=== PATIENT | male | born 1970 | race Caucasian/White ===

== ENCOUNTER 2019-12-20 07:59 | Inpatient (IN) | payer SELFPAY ==
[2019-12-20 08:29] LABS: #Eosinphils 0.1 thou/uL (0.0-0.7); #Lymphocytes 1.1 thou/uL (1.20-3.40); #Monocytes 0.5 thou/uL (0.11-0.59); #Neutrophils 10.7 thou/uL (1.40-6.50); %Basophils 0.3 % (0.0-1.0); %Eosinophils 0.4 % (0.0-10.0); %Lymphocytes 8.6 % (21.0-51.0); %Monocytes 4.2 % (0.0-10.0); %Neutrophils 86.4 % (42.0-75.0); Mean Corpuscular HGB CONC 32.4 g/dL (32.0-36.0); Mean Corpuscular Volume 95.8 fL (78.0-98.0); Mean Platelet Volume 9.1 fL (7.4-10.4); Platelet Count 242 thou/uL (130-400); RBC Distribution Width 12.3 % (11.5-14.5); Red Blood Cell (RBC) Count 4.52 mill/uL (4.70-6.10); White Blood Cell (WBC) Count 12.3 thou/uL (4.8-10.8)
--- NOTE | 2019-12-20 08:39 | RAD ---
XR Chest 1 View Portable HISTORY: Dyspnea COMPARISON: None FINDINGS: The heart size is prominent. The lungs are well expanded without focal areas of consolidati on, brittany pulmonary edema, pneumothorax or pleural effusions. IMPRESSION: No radiographic evidence of acute cardiopulmonary process.
[2019-12-20 08:53] LABS: ALT (SGPT) 82 U/L (8-55); AST (SGOT) 41 U/L (5-34); Albumin 3.8 g/dL (3.5-5.0); Alkaline Phosphatase 78 U/L (40-110); Anion Gap 16 mmol/L (10-20); BUN (Urea Nitrogen) 16 mg/dL (8.9-20.6); Bilirubin, Total 0.6 mg/dL (0.2-1.2); Calc. Creatinine Clearance 0 mL/min (70-130); Carbon Dioxide 20 mmol/L (22-29); Chloride 108 mmol/L (98-107); Estimated GFR-MDRD Greater than 90; Globulin 2.7 g/dL (2.4-3.5); Glucose 134 mg/dL (70-105); Potassium 4.5 mmol/L (3.5-5.1); Protein, Total 6.5 g/dL (6.0-8.3); Sodium 139 mmol/L (136-145)
[2019-12-20 09:13] LABS: CKMB 2.9 ng/mL (0-6.6)
[2019-12-20] MEDS ORDERED: Furosemide 20 MG/2 ML VIAL SLOW IVP SCH (11:15)
--- NOTE | 2019-12-20 11:26 | PDOC.HHP ---
Hospitalist HPI - History of Present Illness Shortness of breath History of Present Illness: Mr. Palacios is a 49-year-old male with a past medical history of intermittent atrial fibrillation, asthma, alcohol use, tobacco use who presents for 8 days of worsening shortness of breath. Patient reports that about 8 days ago he noticed he became short of breath when walking short distances around his home. His shortness of breath worsened and he presented to urgent care who prescribed him steroids and antibiotics for question pneumonia. Patient denies any cough. Patient shortness of breath continued to worsen despite steroids and antibiotics. Patient reports that he is unable to lay flat without feeling shortness of breath. For the past week has slept upright in a recliner. Patient feels comfortable when sitting upright and at rest, but experiences shortness of breath with of exertion. Patient has also noted mild swelling to his bilateral lower extremities. Patient denies chest pain, but does report that his abdomen feels tight. Denies nausea/vomiting/diarrhea. Denies melena, hematochezia. No history of acid-reflux. Patient reports that while he does have a primary care provider listed, he has not had a physical in decades. He only sees his primary care provider for urgent care considerations and generally tries to avoid doctors. He reports that for his atrial fibrillation he was on medication over 10 years ago, but this was discontinued for an unknown reason. He does not believe he ever saw a wireless watcher for his atrial fibrillation. In the emergency room initial vital signs 167/114, 128, 22, 97.8, 99% on 2 L nasal cannula. EKG shows A. fib with rapid ventricular rate to the 120s. Initial troponin 0 0.108. BNP 1726, chest x-ray with no acute findings. H/H 14.0/43.3, WBC 12.3. BUN/CR 16/0.88. AST/ALT 41/82. Patient received 20 mg of IV diltiazem and 1 L of normal saline. Hospitalist ROS - Review of Systems Constitutional: denies: fever, chills, sweats, weakness, malaise, other Eyes: denies: pain, vision change, conjunctivae inflammation, eyelid inflammation, redness, other ENT: denies: ear pain, ear discharge, nose pain, nose discharge, nose congestion, mouth pain, mouth swelling, throat pain, throat swelling, other Respiratory: reports: shortness of breath, SOB with excertion. denies: cough, dry, hemoptysis, pleuritic pain, sputum, wheezing, other Cardiovascular: reports: orthopnea, edema. denies: chest pain, palpitations, paroxysmal noc. dyspnea, light headedness, other Gastrointestinal: reports: abdominal pain. denies: nausea, vomiting, diarrhea, constipation, melena, hematochezia, other Genitourinary: denies: dysuria, frequency, incontinence, hematuria, retention, other Musculoskeletal: denies: neck pain, shoulder pain, arm pain, back pain, hand pain, leg pain, foot pain, other Skin: denies: rash, lesions, jaspreet, bruising, other Neurological: denies: weakness, numbness, incoordination, change in speech, confusion, seizures, other - Medication Medications: New medications include Tramadol Meloxicam Symbicort Albuterol Allergy to penicillin Hospitalist History - Past Medical History Other Medical History: Past medical history of Intermittent atrial fibrillation Asthma EtOH use Tobacco use Patient has not been fully evaluated by primary care doctor in over 10 years. Patient reports he generally tries to avoid doctors. - Past Surgical History Other Surgical History: No past surgical history - Family History Other Family History: Denies family history of cardiac disease, cancer, diabetes - Social History Smoking Status: Never smoker Tobacco Type: chewing tobacco Alcohol: reports: Heavy (4-5 drinks per night) Drugs: reports: none Living Situation: With Family Activity level: independent ambulation - Exam General Appearance: NAD, awake alert Eye: PERRL, anicteric sclera ENT: normocephalic atraumatic, no oropharyngeal lesions, moist mucosa Neck: supple, symmetric, JVD. negative: no JVD, no thyromegaly, no lymphadenopathy, no carotid bruit Heart: no murmur, no gallops, no rubs, normal peripheral pulses, irregular Respiratory: no wheezes, normal chest expansion, no tachypnea, rales (At bilateral bases) Gastrointestinal: soft, non-tender, normal bowel sounds, no palpable masses, distended Extremities: no cyanosis, no clubbing, 2+ LE edema Skin: normal turgor, no lesions, no rashes Neurological: cranial nerve grossly intact, normal sensation to touch, no weakness, no focal deficits, no new deficit Musculoskeletal: normal tone, normal strength, no muscle wasting Psychiatric: normal affect, normal behavior, A&O x 3 Hospitalist Results - Labs Result Diagrams: 12/20/19 08:13 12/20/19 08:13 Lab results: WBC 12.3 thou/uL (4.8-10.8) H 12/20/19 08:13 Hgb 14.0 g/dL (14.0-18.0) 12/20/19 08:13 Hct 43.3 % (42.0-52.0) 12/20/19 08:13 MCV 95.8 fL (78.0-98.0) 12/20/19 08:13 Plt Count 242 thou/uL (130-400) 12/20/19 08:13 Neutrophils % 86.4 % (42.0-75.0) H 12/20/19 08:13 Sodium 139 mmol/L (136-145) 12/20/19 08:13 Potassium 4.5 mmol/L (3.5-5.1) 12/20/19 08:13 Chloride 108 mmol/L (98-107) H 12/20/19 08:13 Carbon Dioxide 20 mmol/L (22-29) L 12/20/19 08:13 BUN 16 mg/dL (8.9-20.6) 12/20/19 08:13 Creatinine 0.88 mg/dL (0.7-1.3) 12/20/19 08:13 Glucose 134 mg/dL (70-105) H 12/20/19 08:13 Calcium 9.0 mg/dL (7.8-10.44) 12/20/19 08:13 Total Bilirubin 0.6 mg/dL (0.2-1.2) 12/20/19 08:13 AST 41 U/L (5-34) H 12/20/19 08:13 ALT 82 U/L (8-55) H 12/20/19 08:13 Alkaline Phosphatase 78 U/L (40-110) 12/20/19 08:13 CK-MB (CK-2) 2.9 ng/mL (0-6.6) 12/20/19 08:13 Troponin I 0.108 ng/mL (< 0.028) H 12/20/19 08:13 B-Natriuretic Peptide 1726.3 pg/mL (0-100) H 12/20/19 08:13 Serum Total Protein 6.5 g/dL (6.0-8.3) 12/20/19 08:13 Albumin 3.8 g/dL (3.5-5.0) 12/20/19 08:13 Hospitalist H&P A/P - Plan Plan: 49-year-old male with history of A. fib, asthma, EtOH use, tobacco use with noncompliance and poor follow-up who presents in what appears to be an acute heart failure exacerbation and A. fib with rapid ventricular rate. Shortness of breath Patient treated at urgent care for pneumonia with steroids and antibiotics, but did not improve patient's shortness of breath. Patient with orthopnea, lower extremity swelling. No cough or wheezing. Patient appears fluid overloaded on exam. BNP elevated to 1726. Chest x-ray with vascular congestion. WBC 12.3. 96% on 2 L nasal cannula. Patient does not have history of heart failure, and is Lasix felix so we will start with 20 mg IV. Will also test for Covid and respiratory viral panel. Patient denies any known Covid contacts. Plan Suspect CHF exacerbation Lasix 20 mg IV Echocardiogram Supplemental O2, continuous pulse ox monitoring Covid, viral panel pending Atrial fibrillation with rapid ventricular rate Patient reports history of intermittent A. fib, but has never seen a wireless watcher before. Patient reports that over 10 years ago he was on some medication for A. fib but has long stopped taking this for unknown reasons. Patient reports he cannot tell when he is in A. fib. RFR2HO0-SALj score 1 due to presumed CHF, but also suspect suspect that patient has untreated hypertension which would make his chads vas score 2. Will consult cardiology for further recommendations. In the emergency room EKG shows A. fib with rapid ventricular rate to the 120s. Hemodynamically stable. Patient received 20 mg of IV diltiazem and is now with a ventricular rate of 100-110. Will start patient on metoprolol 25 mg twice daily. Cardiology recommendations appreciated. Plan Telemetry monitoring Start metoprolol 25 mg p.o. twice daily Echocardiogram TSH, magnesium Cardiology consult Epigastric pain Patient describes band-like "tightness" across his upper abdomen. Denies chest pain. Denies any relation of the pain to meals. Does use meloxicam chronically for knee pain. Denies melena, hematochezia. No N/V/D. Troponin mildly elevated to 0.108, however suspect this is mostly 2/2 to atrial fibrillation. Also susp ect fluid in patient's abdomen. LFTs elevated. Will obtain RUQUS and start ASA 325 mg. Plan -Trend troponins -RUQUS -ASA 325 mg -Start protonix Elevated troponin Patient with elevated troponin to 0.108. Patient denies chest pain. EKG shows A. fib, but no significant ST changes. Suspect elevated troponin likely secondary to A. fib but will trend and continue to monitor. Plan Trend troponin Telemetry monitoring Asthma Patient reports history of asthma on Symbicort and albuterol inhalers. Patient reports he rarely uses his inhalers. When patient became short of breath question asthma versus pneumonia. Went to his PCP for an urgent care visit and they prescribed him prednisone, antibiotics. No improvement in respiratory status since starting Lasix. Low suspicion for asthma exacerbation. Patient without wheezing on exam. Question asthma versus COPD. Plan Albuterol nebs as needed Transaminitis LFTs elevated AST/ALT /. Patient reports significant alcohol use approximately 4-6 beers per night. Patient has not had physical in years. And on exam he reports abdominal tightness. Abdomen appears mildly distended and question fluid overload. Will pursue right upper quadrant ultrasound. Plan Right upper quadrant ultrasound Hepatitis panel Outpatient follow-up Leukocytosis Patient with mild leukocytosis to 12.3, no left shift. Patient treated for suspected pneumonia as an outpatient with no improvement in his shortness of breath. Favor CHF exacerbation versus pneumonia at this time. As patient has no cough, and is afebrile. Suspect leukocytosis is likely reactive. Will hold off on antibiotics for now, with low threshold to start. Plan Trend WBC, fever curve Low threshold to start antibiotics Covid, RVP pending EtOH use History of alcohol use 4-5 beers nightly. AST/ALT elevated 41/82. Patient denies history of seizures or withdrawal symptoms. Last drink was day prior to admission. Will place patient on ASE protocol. Plan ASE protocol Vitamin B12, thiamine Tobacco use Patient uses dip on a daily basis. Patient counseled about nicotine use. DVT prophylaxis: Lovenox Full code, patient has named his father as his medical decision-maker Case discussed with attending physician .
[2019-12-20 11:55] LABS: Lactic Acid 1.7 mmol/L (0.5-2.2)
[2019-12-20 11:57] LABS: Troponin I 0.091 ng/mL (< 0.028)
[2019-12-20 13:09] LABS: Bilirubin Negative (Negative); Blood, Urine Negative (Negative); Clarity Clear (Clear); Glucose, Urine (Dipstick) Normal (Negative); Ketone, Urine Negative (Negative); Leukocyte Negative Leu/uL (Negative); Nitrite Negative (Negative); Protein, Urine (Dipstick) Negative (Neg-Trace); Specific Gravity, Urine 1.017 (1.002-1.036); Urobilinogen Normal mg/dL (Less than 2); pH, Urine 5.5 (5.0-9.0)
[2019-12-20 13:32] LABS: Cardiac Risk 2.8 (Less than 4.5)
[2019-12-20 13:56] LABS: HBCM Index 0.08 S/CO (0-0.79); HBSAg Index 0.11 S/CO (0-0.99); Hep A IgM AB Non-Reactive (NonReactive); Hep B Surf Ag Non-Reactive S/CO (NonReactive); Hep C IgG Ab Non-Reactive (NonReactive); Hep C Index 0.06 S/CO (0-0.79); Hepatitis B Core IgM Abs Non-Reactive (NonReactive); Thyroid Stimulating Hormone 1.6155 uIU/mL (0.35-4.94)
[2019-12-20 14:19] LABS: SARS-CoV-2 NAA Rapid Test Not Detected (NotDetected)
[2019-12-20 14:35] LABS: Hemoglobin A1c 5.1 % (4.0-6.0)
[2019-12-20 14:50] LABS: Troponin I 0.117 ng/mL (< 0.028)
[2019-12-20] MEDS ORDERED: Magnesium 2 GM/50 ML 2 GM in Premix Bag 1 BAG IVPB SCH (16:00)
[2019-12-20] MEDS ORDERED: Aspirin 325 MG TAB PO SCH (16:00)
[2019-12-20 18:45] VITALS: BMI 43.0
[2019-12-20] MEDS: Metoprolol Tartrate 25 MG TAB PO SCH (21:57)
[2019-12-21 04:22] LABS: #Basophils 0.1 thou/uL (0.0-0.2); #Eosinphils 0.1 thou/uL (0.0-0.7); #Lymphocytes 2.2 thou/uL (1.20-3.40); #Monocytes 0.8 thou/uL (0.11-0.59); #Neutrophils 7.7 thou/uL (1.40-6.50); %Basophils 0.7 % (0.0-1.0); %Eosinophils 0.9 % (0.0-10.0); %Lymphocytes 20.3 % (21.0-51.0); Hemoglobin 13.4 g/dL (14.0-18.0); Mean Corpuscular HGB CONC 32.8 g/dL (32.0-36.0); Mean Corpuscular Hemoglobin 31.7 pg (27.0-31.0); Mean Corpuscular Volume 96.6 fL (78.0-98.0); Mean Platelet Volume 9.2 fL (7.4-10.4); Platelet Count 217 thou/uL (130-400); RBC Distribution Width 12.2 % (11.5-14.5); Red Blood Cell (RBC) Count 4.22 mill/uL (4.70-6.10); White Blood Cell (WBC) Count 10.9 thou/uL (4.8-10.8)
[2019-12-21 04:44] LABS: Anion Gap 12 mmol/L (10-20); BUN (Urea Nitrogen) 17 mg/dL (8.9-20.6); Calc. Creatinine Clearance 200 mL/min (70-130); Calcium 8.7 mg/dL (7.8-10.44); Carbon Dioxide 26 mmol/L (22-29); Chloride 108 mmol/L (98-107); Estimated GFR-MDRD Greater than 90; Glucose 103 mg/dL (70-105); Sodium 142 mmol/L (136-145)
--- NOTE | 2019-12-21 07:43 | ULT ---
Sonogram right upper quadrant HISTORY: Abnormal liver function tests. Right upper quadrant pain. Findings gallbladder has a normal appearance without stone evident. Common duct is 0.3 cm. Liver is heterogeneous and diffusely echogenic without focal mass or intrahepatic biliary dilatation. No free fluid. IMPRESSION : No evidence of gallstones or biliary obstruction. Hepato-steatosis.
[2019-12-21] MEDS ORDERED: Enoxaparin Sodium 40 MG/0.4 ML SYRINGE SC SCH (09:00)
[2019-12-21] MEDS: Metoprolol Tartrate 25 MG TAB PO SCH (09:32)
--- NOTE | 2019-12-21 14:29 | PDOC.HOSPP ---
- Subjective Encounter Date: 12/21/19 Subjective: The patient is feeling better. Denies chest pain or shortness of breath. - Objective Vital Signs & Weight: Vital Signs (12 hours) Temp Pulse Resp BP BP Pulse Ox 12/21/19 12:05 98.9 F 105 H 17 161/103 H 97 12/21/19 07:55 98.0 F 94 16 152/113 H 98 12/21/19 05:39 20 93 L 12/21/19 04:00 98.6 F 97 22 H 149/96 H 99 Weight Weight 299 lb 12.8 oz Result Diagrams: 12/21/19 03:52 12/21/19 03:52 Hospitalist ROS - Medication Medications: Active Medications Generic Name Dose Route Start Last Admin Trade Name Freq PRN Reason Stop Dose Admin Albuterol/Ipratropium 3 ml 12/20/19 12:00 12/21/19 05:39 Ipratropium/Albuterol Sulfate 3 Ml Neb NEB 3 ml PRN PRN Administration Wheezing Enoxaparin Sodium 40 mg 12/21/19 09:00 12/21/19 09:32 Enoxaparin Sodium 40 Mg/0.4 Ml Syringe SC 40 mg 0900 NANCI Administration Metoprolol Tartrate 25 mg 12/20/19 21:00 12/21/19 09:32 Metoprolol Tartrate 25 Mg Tab PO 25 mg BID NANCI Administration Pantoprazole Sodium 40 mg 12/21/19 09:00 12/21/19 09:33 Pantoprazole 40 Mg Tab PO 40 mg DAILY NANCI Administration - Exam General Appearance: awake alert ENT: normocephalic atraumatic Neck: supple, no JVD Heart: irregular Heart - other findings: Rate controlled Respiratory: normal chest expansion, no tachypnea Extremities: no cyanosis, no clubbing Neurological: cranial nerve grossly intact, no focal deficits Hosp A/P (1) Atrial fibrillation with RVR Code(s): I48.91 - UNSPECIFIED ATRIAL FIBRILLATION Status: Acute (2) CHF exacerbation Code(s): I50.9 - HEART FAILURE, UNSPECIFIED Status: Acute (3) Elevated troponin Code(s): R77.8 - OTHER SPECIFIED ABNORMALITIES OF PLASMA PROTEINS Status: Acute (4) Asthma Code(s): J45.909 - UNSPECIFIED ASTHMA, UNCOMPLICATED Status: Acute - Plan The patient saturating well on room air. Mild dyspnea on exertion is present. Continue diuresis. Atrial fibrillation with rate control on metoprolol. Echocardiogram is pending.
[2019-12-21] MEDS ORDERED: Furosemide 40 MG/4 ML VIAL SLOW IVP SCH (14:45)
--- NOTE | 2019-12-21 15:50 | CON ---
DATE OF CONSULTATION: 12/21/2019 REASON FOR CONSULTATION: Congestive heart failure. HISTORY OF PRESENT ILLNESS: Mr. Palacios is a 49-year-old gentleman with previous history of paroxysmal atrial fibrillation, who recently presented with increased shortness of breath, and lower extremity edema. He states that several weeks ago he was diagnosed with URI and placed on steroid therapy in addition to antibiotics. He did not improve. His shortness of breath and tightness in his chest continued. He also had tightness in his stomach. He states he was not able to lie flat due to shortness of breath. He had PND and orthopnea. He then proceeded to the emergency room with the above. He was found to be in atrial fibrillation with RVR. He is currently rate controlled. He was diagnosed with paroxysmal atrial fibrillation 10-12 years ago. His CHADS score initially was 0. PAST MEDICAL HISTORY: Paroxysmal atrial fibrillation, asthma, alcohol abuse. PAST SURGICAL HISTORY: None. FAMILY HISTORY: None. HOME MEDICATIONS: As above including 1. Tramadol for osteoarthritis. 2. Symbicort. 3. Albuterol. ALLERGIES: PENICILLIN. REVIEW OF SYSTEMS: A 10-point review of systems is reviewed and was negative. PHYSICAL EXAMINATION: GENERAL: Patient is a pleasant male who is in no acute distress. The patient appears their stated age. VITAL SIGNS: Blood pressure 161/103, pulse 105, temperature 98.3. NEUROLOGIC: The patient is alert and oriented x3 with no focal neurologic deficits. HEENT: Sclerae without icterus. Mouth has moist mucous membranes with normal pallor. NECK: No JVD. Carotid upstroke brisk. No bruits bilaterally. LUNGS: Crackles noted bilaterally. BACK: No scoliosis or kyphosis. CARDIAC: Irregularly irregular. ABDOMEN: Soft, nontender, nondistended. No peritoneal signs present. No hepatosplenomegaly. No abnormal striae. EXTREMITIES: 2+ femoral and 2+ dorsalis pedis pulses. No cyanosis, clubbing, or edema. SKIN: No gross abnormalities. PERTINENT LABORATORY DATA: Hemoglobin 13.4, hematocrit 40.7, platelet count 217. Echo Doppler shows LVEF 15-20%. LV appears slightly dilated. IMPRESSION: 1. New onset congestive heart failure of unknown etiology. 2. Paroxysmal atrial fibrillation. 3. Alcohol abuse. RECOMMENDATIONS: 1. Mr. Palacios's recent echo did suggest a significant cardiomyopathy. This may be tachy-joe syndrome secondary to alcohol abuse versus underlying coronary artery disease. 2. At this point I would recommend aggressive diuresis. The patient is not able to lie flat. Once he is able to lie flat we then recommend coronary angiography plus PCI. I discussed the procedure in full detail Mr. Palacios. Risks include but not limited to the following: Heart catheterization, PCI consent. All questions answered given the above patient agreed to proceed above procedure. I will switch his Lasix from p.o. to IV. May also consider metolazone. We will also switch his metoprolol to carvedilol. We will also add Entresto low-dose. Job ID: [id number]
[2019-12-21] MEDS: Carvedilol 6.25 MG TAB PO SCH (17:29)
[2019-12-21] MEDS ORDERED: Enoxaparin Sodium 120 MG/0.8 ML SYRINGE SC SCH (21:00)
[2019-12-22 04:40] LABS: #Basophils 0.1 thou/uL (0.0-0.2); #Eosinphils 0.2 thou/uL (0.0-0.7); #Lymphocytes 1.9 thou/uL (1.20-3.40); #Monocytes 0.7 thou/uL (0.11-0.59); #Neutrophils 5.7 thou/uL (1.40-6.50); %Basophils 0.9 % (0.0-1.0); %Eosinophils 1.8 % (0.0-10.0); %Monocytes 8.4 % (0.0-10.0); %Neutrophils 66.9 % (42.0-75.0); Hemoglobin 14.8 g/dL (14.0-18.0); Mean Corpuscular HGB CONC 33.3 g/dL (32.0-36.0); Mean Corpuscular Hemoglobin 31.9 pg (27.0-31.0); Mean Corpuscular Volume 95.7 fL (78.0-98.0); Mean Platelet Volume 9.3 fL (7.4-10.4); Platelet Count 194 thou/uL (130-400); RBC Distribution Width 12.2 % (11.5-14.5); Red Blood Cell (RBC) Count 4.64 mill/uL (4.70-6.10); White Blood Cell (WBC) Count 8.5 thou/uL (4.8-10.8)
[2019-12-22 05:03] LABS: Anion Gap 15 mmol/L (10-20); BUN (Urea Nitrogen) 17 mg/dL (8.9-20.6); Calc. Creatinine Clearance 184 mL/min (70-130); Calcium 8.9 mg/dL (7.8-10.44); Carbon Dioxide 25 mmol/L (22-29); Chloride 105 mmol/L (98-107); Estimated GFR-MDRD Greater than 90; Glucose 94 mg/dL (70-105); Potassium 3.7 mmol/L (3.5-5.1); Sodium 141 mmol/L (136-145)
[2019-12-22] MEDS: Furosemide 40 MG/4 ML VIAL SLOW IVP SCH ×2 (06:11→14:56)
[2019-12-22] MEDS ORDERED: Carvedilol 6.25 MG TAB PO SCH (08:52)
[2019-12-22] MEDS ORDERED: Furosemide 40 MG TAB PO SCH (09:00)
[2019-12-22] MEDS ORDERED: Communication Order-Pharmacy FS SCH (09:15)
[2019-12-22] MEDS: Carvedilol 6.25 MG TAB PO SCH ×4 (09:21→21:27)
[2019-12-22] MEDS: Sodium Chloride 0.9% 1,000 ML IV SCH (10:13)
[2019-12-22] MEDS ORDERED: Iopamidol 370 76% 100 ML VIAL ONE (12:27)
[2019-12-22] MEDS ORDERED: Verapamil 5 MG/2 ML VIAL ONE (13:52)
[2019-12-22] MEDS ORDERED: Nitroglycerin 100MG/250ML BOT 250 ML ONE (13:52)
[2019-12-22] MEDS ORDERED: Heparin 10,000 UNITS/ 10 ML VIAL ONE (13:52)
[2019-12-22] MEDS ORDERED: Fentanyl 100 MCG/2 ML VIAL ONE (14:28)
[2019-12-22] MEDS ORDERED: Midazolam HCl 2 mg/2 ml Vial ONE (14:28)
--- NOTE | 2019-12-22 16:26 | PDOC.HOSPP ---
- Subjective Encounter Date: 12/22/19 Subjective: The patient's shortness of breath improved compared to yesterday. He was able to lay flat today. - Objective Vital Signs & Weight: Vital Signs (12 hours) Temp Pulse Resp BP BP BP Pulse Ox 12/22/19 11:45 98.7 F 110 H 16 117/87 98 12/22/19 09:21 131/60 12/22/19 07:55 98.6 F 97 15 150/102 H 96 12/22/19 06:04 98 Weight Weight 276 lb I&O: 12/21/19 12/22/19 12/23/19 06:59 06:59 06:59 Intake Total 1690 Output Total 5600 Balance -3910 Result Diagrams: 12/22/19 04:00 12/22/19 04:00 Hospitalist ROS - Medication Medications: Active Medications Generic Name Dose Route Start Last Admin Trade Name Freq PRN Reason Stop Dose Admin Albuterol/Ipratropium 3 ml 12/20/19 12:00 12/21/19 05:39 Ipratropium/Albuterol Sulfate 3 Ml Neb NEB 3 ml PRN PRN Administration Wheezing Carvedilol 6.25 mg 12/22/19 09:00 12/22/19 09:21 Carvedilol 6.25 Mg Tab PO 6.25 mg TID NACNI Administration Furosemide 40 mg 12/22/19 06:00 12/22/19 14:56 Furosemide 40 Mg/4 Ml Vial SLOW IVP Not Given 0600,1400 NANCI Sodium Chloride 1,000 mls @ 100 mls/hr 12/22/19 09:15 12/22/19 10:13 Normal Saline 0.9% IV 1,000 mls .Q10H NANCI Administration Pantoprazole Sodium 40 mg 12/21/19 09:00 12/22/19 09:21 Pantoprazole 40 Mg Tab PO 40 mg DAILY NANCI Administration Sacubitril/Valsartan 1 tab 12/21/19 21:00 12/22/19 09:21 Sacubitril 24mg/Valsartan 26mg Tab PO 1 tab BID NANCI Administration - Exam General Appearance: awake alert ENT: normocephalic atraumatic Neck: supple, no JVD Respiratory: normal chest expansion, no tachypnea Extremities: no cyanosis, no clubbing Neurological: cranial nerve grossly intact, no focal deficits Hosp A/P (1) Atrial fibrillation with RVR Code(s): I48.91 - UNSPECIFIED ATRIAL FIBRILLATION Status: Acute (2) CHF exacerbation Code(s): I50.9 - HEART FAILURE, UNSPECIFIED Status: Acute (3) Elevated troponin Code(s): R77.8 - OTHER SPECIFIED ABNORMALITIES OF PLASMA PROTEINS Status: Acute (4) Asthma Code(s): J45.909 - UNSPECIFIED ASTHMA, UNCOMPLICATED Status: Acute - Plan The patient saturating well on room air. Mild dyspnea on exertion is present. Continue diuresis. Atrial fibrillation with rate control on metoprolol. Echocardiogram showed patient's heart failure is of reduced EF variety. Cardiac cath planned today.
[2019-12-23 05:09] LABS: #Basophils 0.1 thou/uL (0.0-0.2); #Eosinphils 0.2 thou/uL (0.0-0.7); #Lymphocytes 1.6 thou/uL (1.20-3.40); #Monocytes 0.9 thou/uL (0.11-0.59); #Neutrophils 6.9 thou/uL (1.40-6.50); %Basophils 0.6 % (0.0-1.0); %Eosinophils 2.1 % (0.0-10.0); %Lymphocytes 16.6 % (21.0-51.0); %Monocytes 9.4 % (0.0-10.0); %Neutrophils 71.2 % (42.0-75.0); Hemoglobin 14.7 g/dL (14.0-18.0); Mean Corpuscular HGB CONC 33.1 g/dL (32.0-36.0); Mean Corpuscular Hemoglobin 31.8 pg (27.0-31.0); Mean Platelet Volume 9.4 fL (7.4-10.4); Platelet Count 225 thou/uL (130-400); RBC Distribution Width 12.2 % (11.5-14.5); Red Blood Cell (RBC) Count 4.62 mill/uL (4.70-6.10); White Blood Cell (WBC) Count 9.6 thou/uL (4.8-10.8)
[2019-12-23 05:28] LABS: Anion Gap 13 mmol/L (10-20); BUN (Urea Nitrogen) 15 mg/dL (8.9-20.6); Calc. Creatinine Clearance 172 mL/min (70-130); Carbon Dioxide 24 mmol/L (22-29); Chloride 106 mmol/L (98-107); Estimated GFR-MDRD 87; Glucose 151 mg/dL (70-105); Potassium 4.3 mmol/L (3.5-5.1); Sodium 139 mmol/L (136-145)
[2019-12-23] MEDS: Furosemide 40 MG/4 ML VIAL SLOW IVP SCH ×2 (06:20→13:37)
[2019-12-23] MEDS: Sodium Chloride 0.9% 1,000 ML IV SCH ×2 (07:59→08:00)
[2019-12-23] MEDS: Carvedilol 6.25 MG TAB PO SCH ×2 (08:49→17:56)
[2019-12-23] MEDS ORDERED: Apixaban 5 MG TAB PO SCH (09:00)
[2019-12-23] MEDS ORDERED: Amiodarone 200 MG TAB PO SCH (09:00)
--- NOTE | 2019-12-23 14:33 | PRG ---
DATE OF SERVICE: 12/23/2019 SUBJECTIVE: Mr. Palacios is currently doing well. He has diuresed. His shortness of breath is back to baseline. He underwent coronary angiography yesterday and was not found to have significant coronary artery disease. OBJECTIVE: VITAL SIGNS: Heart rate 74, blood pressure 118/62, temperature 98. LUNGS: Clear to auscultation. HEART: Irregularly irregular. ABDOMEN: Soft, nontender, and nondistended. EXTREMITIES: Show no edema. IMPRESSION: 1. Nonischemic cardiomyopathy. 2. Atrial fibrillation. 3. Alcohol abuse. RECOMMENDATIONS: His cardiomyopathy may likely be multifactorial. He does have underlying atrial fibrillation. It is unknown whether his atrial fibrillation recurs paroxysmally and is asymptomatic. He also has significant alcohol abuse, he is drinking 5 to 15 beers per day. I counseled him on decreasing his alcohol intake to abstinent. Job ID: [id number]
[2019-12-23 15:50] VITALS: BP 114/78; TEMP 98.2
--- NOTE | 2019-12-24 15:31 | EKG ---
Test Reason : Blood Pressure : / mmHG Vent. Rate : 135 BPM Atrial Rate : 093 BPM P-R Int : 000 ms QRS Dur : 088 ms QT Int : 286 ms P-R-T Axes : 000 067 014 degrees QTc Int : 429 ms Atrial fibrillation with rapid ventricular response Anteroseptal infarct , age undetermined Abnormal ECG Confirmed by PHILIPP FRASER ([id number]), health editor DILLON HERNDON ([id number]) on 12/24/2019 3:31:30 PM Referred By: Confirmed By:PHILIPP Hernandez
--- NOTE | 2019-12-26 05:26 | PQF ---
CLINICAL DOCUMENTATION CLARIFICATION FORM: Dear : Gilbert Maciel Date / Time:12/26/2019 05:25 Please exercise your independent, professional judgment in responding to the clarification form. Clinical indicators are provided on the bottom of this form for your review Please check appropriate box(es): HEART FAILURE: A. ACUITY [ ] Acute [ ] Acute on Chronic [ ] Chronic B. TYPE: [ ] Systolic / HFrEF [ ] Diastolic / HFpEF [ ] Combined Systolic / Diastolic [ ] Other diagnosis, please specify [ ] Unable to determine Physician Signature: Date/Time: For continuity of documentation, please document condition throughout progress notes and discharge summary. Thank You. To be completed by CDI/Coding staff for physician review: Present Clinical Indicators - Signs / Symptoms / Labs Results and Location in Medical Record [x] CHF exacerbation ED Notes 12/19 [x] Suspect CHF exacerbation HP 12/19 [x] New onset congestive heart failure of unknown etiology Consult 12/20 [x] Chest Xray: no pulmonary edema.. 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
--- NOTE | 2019-12-26 05:31 | PQF ---
CLINICAL DOCUMENTATION CLARIFICATION FORM: Dear : Gilbert Maciel Date / Time: 12/26/19 05:30 Please exercise your independent, professional judgment in responding to the clarification form. Clinical indicators are provided on the bottom of this form for your review Please check appropriate box(es): AMI TYPE: [ ] Type 1 AL (STEMI) [ ] Type 1 AL (NSTEMI) [ ] Type 2 AL (T2MI) secondary to: [ ] CHF exacerbation [ ] Afib [ ] No AL [ ] Other diagnosis,please specify [ ] Unable to determine Physician Signature: Date/Time: For continuity of documentation, please document condition throughout progress notes and discharge summary. Thank You. To be completed by CDI/Coding staff for physician review: Present Clinical Indicators - Signs / Symptoms / Labs Results and Location in Medical Record [x] Elevated troponin ED Notes 12/19 [x] EKG: ST normal T wave normal ED Notes 12/19 [x] Troponin mildly elevated to 0.108, however suspect this is mostly 2/2 to afib HP 12/19 [x] Anteroseptal infarct, age undetermined Electrocardiogram 12/23 [x] Troponin: 12/19=0.108,0.091,0.117 Laboratory 12/19 Present Risk Factors Results and Location in Medical Record [x] Afib ED Notes 12/19 [x] Tobacco chewer HP 12/19 [x] Alcohol Abuse Consult 12/20 [x] CHF HP 12/19 Present Treatments Results and Location in Medical Record [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
--- NOTE | 2019-12-26 07:14 | DIS ---
DATE OF ADMISSION: 12/20/2019 DATE OF DISCHARGE: 12/23/2019 DISCHARGE DIAGNOSES: 1. Acute heart failure with reduced ejection fraction. 2. Dilated cardiomyopathy with EF of 15% to 20%. 3. Paroxysmal atrial fibrillation. 4. Alcohol abuse. DISCHARGE MEDICATIONS: 1. Carvedilol 12.5 mg orally twice daily. 2. Amiodarone 400 mg orally daily. 3. Eliquis 5 mg orally twice daily. 4. Entresto 24/26 mg orally twice daily. HISTORY OF PRESENT ILLNESS AND HOSPITAL COURSE: The patient is a 49-year-old gentleman, with past medical history of atrial fibrillation, asthma, and alcohol abuse, who presented to the hospital with worsening shortness of breath and lower extremity edema. The patient also complained of orthopnea. In the ER, he was found to be in atrial fibrillation with rapid ventricular response and his chest x-ray revealed presence of mild pulmonary edema. The patient was admitted to the hospital and started on IV diuresis. Cardiology Service consulted and cardiac catheterization was performed, which showed severely depressed EF with dilated cardiomyopathy. Medical management as of above was recommended. Job ID: [id number]
--- NOTE | 2019-12-26 22:01 | PQF ---
CLINICAL DOCUMENTATION CLARIFICATION FORM: Dear : Viki Giles Date / Time: 12/26/2019 21:57 Please exercise your independent, professional judgment in responding to the clarification form. Clinical indicators are provided on the bottom of this form for your review Can you please specify the diagnosis occasioning inpatient admission? Please check appropriate box(es): [ >] Acute CHF [ >] Paroxysmal Afib [ ] Other diagnosis, please specify [ ] Unable to determine Physician Signature: Date/Time: For continuity of documentation, please document condition throughout progress notes and discharge summary. Thank You. To be completed by CDI/Coding staff for physician review: Present Clinical Indicators - Signs / Symptoms / Labs Results and Location in Medical Record [x] Acute heart with reduced ejection fraction DS 12/22 [x] gParoxysmal Afibh DS 12/22 [x] gChest Xray: no pulmonary edema.. or pleural effusion Chest Xray 12/19 [x] worsening shortness of breath ED Notes 12/19 [x] Patient has also noted mild swelling to his bilateral lower extremities HP 12/19 [x] EF at 15-20% TTE 12/20 [x] Mild dyspnea on exertion PN 12/20 [x] Crackles noted bilaterally Consult 12/20 [x] BNP: 12/1932=8476.3 Laboratory 12/19 [x] gIn the ER he was found to be in atrial fibrillation with rapid ventricular responseh DS 12/22 [x] Pulse: 12/19= 107 12/2084=096 12/2130=028 Vital Signs 12/19 Present Risk Factors Results and Location in Medical Record [x] Tobacco chewer HP 12/19 [x] Alcohol Abuse Consult 12/20 [x] Dilated CMP DS 12/22 Present Treatments Results and Location in Medical Record [x] C 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
== END 2019-12-23 20:35 | disposition home or self-care (01) | DRG 286 ==
LOC: ERS 07:59 → ERHOLD 11:17 → 2NO 18:20
PROVIDERS: ADMIT Internal Medicine; ATTEND Internal Medicine
PROC: 4A023N7 Measurement of Cardiac Sampling and Pressure, Left Heart, Percutaneous Approach (ICD-10-PCS; principal; 2019-12-22)
PROC: B2111ZZ Fluoroscopy of Multiple Coronary Arteries using Low Osmolar Contrast (ICD-10-PCS; 2019-12-22)
PROC: B2151ZZ Fluoroscopy of Left Heart using Low Osmolar Contrast (ICD-10-PCS; 2019-12-22)
PROC: 4A033BC Measurement of Arterial Pressure, Coronary, Percutaneous Approach (ICD-10-PCS; 2019-12-22)
DX: I48.0 Paroxysmal atrial fibrillation (principal); I50.21 Acute systolic (congestive) heart failure; I42.0 Dilated cardiomyopathy; J45.909 Unspecified asthma, uncomplicated; F17.220 Nicotine dependence, chewing tobacco, uncomplicated; R74.01 Elevation of levels of liver transaminase levels; D72.829 Elevated white blood cell count, unspecified; F10.10 Alcohol abuse, uncomplicated; Z20.828 Contact with and (suspected) exposure to other viral communicable diseases; Z88.0 Allergy status to penicillin; Z79.51 Long term (current) use of inhaled steroids
CPT/HCPCS: 36415; 71045; 76705; 76942; 80048; 80053; 80061; 80074; 81003; 82553; 83036; 83605; 83735; 83880; 84443; 84484; 85025; 87633; 93005; 93306; 93458; 94640; 94760; 96374; 99152; C1760; J1644; J1650; J1940; J2250; J3010; J3475; J7620; Q9967; U0002

== ENCOUNTER 2020-08-02 07:07 | Day surgery (SDC) | payer OTHER ==
[2020-07-31 12:41] VITALS: BMI 42.8
[2020-08-02 08:25] VITALS: BP 148/113; TEMP 98.3
== END 2020-08-02 09:52 | disposition home or self-care (01) ==
LOC: RAD 07:07
PROVIDERS: ATTEND Student in an Organized Health Care Education/Training Program
PROC: 00JU3ZZ Inspection of Spinal Canal, Percutaneous Approach (ICD-10-PCS; principal; 2020-08-02)
DX: H47.10 Unspecified papilledema (principal); J45.909 Unspecified asthma, uncomplicated; I50.20 Unspecified systolic (congestive) heart failure; I48.91 Unspecified atrial fibrillation; M19.90 Unspecified osteoarthritis, unspecified site; F10.10 Alcohol abuse, uncomplicated; Z79.899 Other long term (current) drug therapy; Z87.891 Personal history of nicotine dependence; Z88.0 Allergy status to penicillin
CPT/HCPCS: 62270